=== PATIENT | female | born 1965 ===

== ENCOUNTER 2017-02-17 09:18 | Day surgery (SDC) | payer BC ==
[~2017-02-17] VITALS: Ht 167.6 cm; Wt 66.2 kg
[~2017-02-17 09:18] MED LIST: LR 1000ml 1,000 ML IVLG SCH
[2017-02-17 09:47] VITALS: BP 132/82
[2017-02-17] MEDS ORDERED: NKM (09:57)
[2017-02-17] MEDS ORDERED: Propofol 10mg/ml 20ml IV ONE (10:00)
[2017-02-17] MEDS ORDERED: LR 1000ml ONE (10:00)
--- NOTE | 2017-02-17 10:22 | Pre-Procedure Note/Attestation ---
Pre-Procedure Note/Attestation Complete Prior to Procedure Planned Procedure: not applicable Procedure Narrative: egd/colon Indications for Procedure Pre-Operative Diagnosis: Heme (+) stool Attestation I attest that I discussed the nature of the procedure; its benefits; risks and complications; and alternatives (and the risks and benefits of such alternatives ), prior to the procedure, with the patient (or the patient's legal field representative/health education). I attest that, if there was a reasonable possibility of needing a blood transfusion, the patient (or the patient's legal field representative/health education) was given the [facility] standardized written summary, pursuant to the [employer] Blood Safety Act ([place] Health and Safety Code # 1645, as amended). I attest that I re-evaluated the patient just prior to the surgery and that there has been no change in the patient's H&P, except as documented below: ROLA DE LOS SANTOS February 17, 2017 10:22
--- NOTE | 2017-02-17 10:22 | Short Stay Surgery H&P ---
History of Present Illness History of Present Illness Chief Complaint see typed H&P HPI Sarita Martinez is a 51 year old female who was admitted on for Blood In Stool Patient History Allergies: Coded Allergies: No Known Allergies (Unverified , 02/16/17) PAST MEDICAL HISTORY: Past Surgeries: Social History: Medication History Scheduled No Known Medications* (NKM - No Known Medications*), 0 ., (Reported) Physical Exam Vital Signs Last Vital Signs Date Time Temp Pulse Resp B/P Pulse Ox O2 Delivery O2 Flow Rate FiO2 02/17/17 09:47 98.7 65 18 132/82 99 Room Air Plan Attestation Are the patient's medical conditions optimized for surgery? ROLA DE LOS SANTOS February 17, 2017 10:22
--- NOTE | 2017-02-17 10:57 | Anethesia Preoperative Eval ---
Anesthesia Pre-op PMH/ROS General Date of Evaluation: February 17, 2017 Time of Evaluation: 09:30 Anesthesiologist: Lilian ASA Score: ASA 1 Mallampati Score Class I : Soft palate, uvula, fauces, pillars visible Class II: Soft palate, uvula, fauces visible Class III: Soft palate, base of uvula visible Class IV: Only hard plate visible Mallampati Classification: Class I Allergies: Coded Allergies: No Known Allergies (Unverified , 02/16/17) Anesthesia Pre-op Phys. Exam Physician Exam Last Vital Signs Date Time Temp Pulse Resp B/P Pulse Ox O2 Delivery O2 Flow Rate FiO2 02/17/17 09:47 98.7 65 18 132/82 99 Room Air Yuli Quintana MD February 17, 2017 10:57
--- NOTE | 2017-02-17 10:57 | Endoscopy Procedure Note ---
Endoscopy Procedure Note Indication for Procedure: Heme (+) Procedures Performed: EGD, colonoscopy Operative Findings/Diagnosis: Nl egd, descending dim polyp. mild rectal erythema Specimen: yes Pt Tolerated Procedure Well: Yes Estimated Blood Loss: none Anesthesiologist: Lilian Anesthesia: MAC Medication Given: see anesthesia record Implant(s) used?: No 50 yrs or older w/o bx or poly: No 10yrs. F/U not recommended: No If not recommended, why?: Above average risk 10 yrs. F/U needed: No 18 years or older w/prev. colo: No <3yrs. since last colonoscopy: Yes Med reason:<3 yrs.: System Reason:<3 yrs.: Last colonoscopy >= to 3yrs: Yes ROLA DE LOS SANTOS February 17, 2017 10:56
--- NOTE | 2017-02-17 10:58 | Immediate Post-Op Evaluation ---
Immediate Post-Op Evalulation Immediate Post-Op Evalulation Procedure: EGDCOLON Date of Evaluation: February 17, 2017 Time of Evaluation: 10:58 Nausea: No Vomiting: No Patient Status: awake Hydration Status: adequate Yuli Quintana MD February 17, 2017 10:58
--- NOTE | 2017-02-17 11:01 | Brief Operative Note ---
Immediate Post Operative Note Operative Note Chief Complaint: OB (+) Pre-op Diagnosis: Heme (+) stool Procedure: EGD/Bx, Colon/ BX Post-op Diagnosis: descending colon polyp Post-op Diagnosis: same as pre-op plus Surgeon: alli Anesthesiologist: Lilian Anesthesia: moderate sedation Specimen: yes Complications: none Condition: stable Estimated Blood Loss: none Drains: none Implant(s) used?: No ROLA DE LOS SANTOS February 17, 2017 11:01
[2017-02-17 11:05] VITALS: BP 135/85
[2017-02-17 11:10] VITALS: BP 146/90
[2017-02-17 11:15] VITALS: BP 153/93
--- NOTE | 2017-02-17 11:25 | 48 Hour Post Anesthesia Eval ---
Post Anesthesia Evaluation Procedure: EGDCOLON Date of Evaluation: February 17, 2017 Time of Evaluation: 11:25 Nausea: No Vomiting: No Mental Status/LOC: patient returned to baseline Yuli Quintana MD February 17, 2017 11:25
[2017-02-17 12:15] VITALS: BP 128/87
[2017-02-17 12:40] VITALS: BP 128/87
--- NOTE | 2017-02-17 21:29 | Procedure Note ---
PROCEDURE PERFORMED: Upper endoscopy with biopsy as well as colonoscopy with biopsy. SURGEON: Christie Valle M.D. ANESTHESIA: Please see the separate anesthesiologist notes for details. PRE-ENDOSCOPIC DIAGNOSIS: Heme-positive stools. POST-ENDOSCOPIC DIAGNOSES: 1. Diminutive descending colon polyp status biopsy removal. 2. Mild proximal rectal erythema of doubtful significance status biopsy. DESCRIPTION OF PROCEDURE: The procedure, its risks, indications, alternatives, and possible complications were explained to the patient and informed consent was obtained. The patient was then sedated in the left lateral decubitus position. A diagnostic upper endoscope was introduced through the oropharynx and advanced to the duodenum. The endoscope was gradually withdrawn. The mucosa was examined carefully. Examination of the upper gastric mucosa revealed no significant abnormalities. Biopsies of the antrum was sent to pathology for review. The endoscope was removed. The rectal exam was done. The colonoscope was introduced into the rectum and advanced to the terminal ileum without difficulty. The colonoscope was then gradually withdrawn. The mucosa was examined carefully. Examination of the terminal ileum mucosa did not reveal any abnormalities. The colonic mucosa were normal except for a diminutive polyp in the proximal descending colon, which was removed with biopsy forceps. In the proximal rectum, there were few areas of patchy erythema, which was felt to be likely preparation artifact. Biopsies of this area were sent to pathology for review. Retroflexion view of the rectum was unremarkable. The colonoscope was removed. The patient was sent to recovery in good condition. COMPLICATIONS: None. RECOMMENDATIONS: 1. Follow up biopsy results. 2. Outpatient followup. Christie Valle M.D. DR: OLLIE JOB#: [id number] CC:
--- NOTE | 2017-02-18 02:28 | Procedure Note ---
DATE OF PROCEDURE: 02/17/2017 GASTROENTEROLOGY PROCEDURE REPORT PROCEDURE PERFORMED: Upper gastrointestinal endoscopy with biopsy as well as colonoscopy with biopsy. SURGEON: Christie Valle M.D. ANESTHESIA: Please see the separate anesthesiologist notes for details. PRE-ENDOSCOPIC DIAGNOSIS: Heme-positive stools. POST-ENDOSCOPIC DIAGNOSES: 1. Normal upper endoscopy status post random biopsy of the antrum. 2. Normal terminal ileum. 3. Diminutive polyp in the possible descending colon status post biopsy removal. 4. Ill defined rectal erythema likely due to preparation artifact status post biopsy. DESCRIPTION OF PROCEDURE: The procedure, its risks, indications, alternatives, and possible complications including, but not limited to bleeding, infection, perforation, , and anesthesia complications were explained to the patient and informed consent was obtained. The diagnostic upper endoscope was introduced through the oropharynx and advanced to the duodenum and then subsequently colonoscope was introduced into the rectum and advanced to the terminal ileum. The findings and treatments were as listed above. The patient was sent to recovery in good condition. COMPLICATIONS: None. RECOMMENDATIONS: 1. Follow up biopsy results. 2. Outpatient followup. Please fax the copy of this report to my office at [phone]. Christie Valle M.D. DR: OLLIE JOB#: [id number] CC: SARAH
== END 2017-02-17 12:45 | disposition home or self-care (01) ==
LOC: GAS 09:18
DX: K92.1 Melena (principal); D12.4 Benign neoplasm of descending colon; E78.00 Pure hypercholesterolemia, unspecified; E07.9 Disorder of thyroid, unspecified; H91.93 Unspecified hearing loss, bilateral
CPT/HCPCS: 43239; 45380; J2704; J7120; 94003; 94150